=== PATIENT | male | born 1970 | race Caucasian/White ===

== ENCOUNTER 2021-05-07 13:06 | Emergency (ER) | payer SELFPAY ==
[~2021-05-07] VITALS: Ht 182.9 cm; Wt 134.0 kg
[2021-05-07 13:09] VITALS: BP 209/127
[2021-05-07] MEDS ORDERED: TETanus/Pertussis (Acell)/Diphther VAC/PF (Tdap-Adult) 0.5ml syringe IMVAC ONE (13:25)
[2021-05-07] MEDS ORDERED: LIDOcaine 1% W/epiNEPHrine 1:200,000 10ml vial IJ ONE (13:25)
[2021-05-07] MEDS ORDERED: bacitracin 15gm ointment TP ONE (13:25)
[2021-05-07] MEDS ORDERED: ceFAZolin 1gm IM kit IM ONE (15:45)
[2021-05-07] MEDS ORDERED: ONDA4TAB6 PO (16:02)
[2021-05-07] MEDS ORDERED: CEPH250T PO (16:02)
[2021-05-07] MEDS ORDERED: HYDR-3965 PO (16:02)
--- NOTE | 2021-05-07 16:20 | NUR ---
Pt given and understands d/c instructions. Wound cleaned, dressed with non-stick dressing, and frog splint applied. Ambulatory with a steady gait.
== END 2021-05-07 16:20 | disposition home or self-care (01) ==
LOC: ER 13:07
DX: S61.212A Laceration without foreign body of right middle finger without damage to nail, initial encounter (principal); I10 Essential (primary) hypertension; Z20.3 Contact with and (suspected) exposure to rabies; Z88.5 Allergy status to narcotic agent; Z79.2 Long term (current) use of antibiotics; Z79.899 Other long term (current) drug therapy; X58.XXXA Exposure to other specified factors, initial encounter; Y93.89 Activity, other specified; Y92.89 Other specified places as the place of occurrence of the external cause; Y99.8 Other external cause status
CPT/HCPCS: 12001; 73140; 90471; 90715; 99283; J0690; J3490